=== PATIENT | female | born 1970 | race Caucasian/White ===

== ENCOUNTER 2016-08-16 09:40 | Emergency (ER) | payer SELFPAY ==
[2016-08-16 09:52] VITALS: BMI 36.6
[2016-08-16] MEDS ORDERED: ADACEL TDaP IM ONE ×2 (10:03→10:08)
[2016-08-16] MEDS ORDERED: ROCEPHIN VIAL 1 GM IM ONE (10:03)
[2016-08-16] MEDS ORDERED: TORADOL 60 MG VIAL IM ONE (10:04)
[2016-08-16] MEDS ORDERED: CATAPRES TAB 0.1 MG PO ONE (10:05)
[2016-08-16] MEDS ORDERED: CATAPRES TAB 0.2 MG ONE (10:08)
[2016-08-16] MEDS ORDERED: TORADOL 60 MG VIAL ONE (10:08)
[2016-08-16] MEDS ORDERED: ROCEPHIN VIAL 1 GM ONE (10:08)
--- NOTE | 2016-08-16 10:10 | DR.BITE ---
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 States her left lower leg has been hurting when she walks at times with drainage. She denies fever, chills, nausea or vomiting. States she does not have a local doctor. She has been having hot flashes and sweats a lot. Unsure of her last tetanus. States she reported the dog bite and is unsure of the dog immunizations. She denies chest pain or SOB. Chief Complaint:: PT. GOT BIT BY A DOG APPROXIMATELY 5 WEEKS AGO TO THE BACK OF HER LEFT CALF. AREA HAS NOT HEALED AND PT. STATES IT IS PAINFUL AND DRAINS. AREA IS ALSO HARD TO TOUCH. PT. HAS BEEN TAKING ORAL ANTIBIOTICS AND APPLYING ANTIBIOTIC OINTMENT TO AREA WITHOUT IMPROVEMENT. - Nurses notes reviewed Nurses Notes Review: Yes - Source History Provided: Patient - Mode of Arrival Mode of Arrival: Ambulatory - Duration Duration: Constant How lon Duration: Weeks - Location Location: Left, Leg - Timing Onset of Chief Complaint: 07/12/16 Symptoms Occurred: 5 ago: Weeks - Context Caused by: Dog Symptoms: Pain, Bruising, Redness, Swelling, Abrasion Immunization Status of Animal: Unknown Tetanus Immunization Current: No - Severity Pain: Moderate Puritis Severity: None SOB Severity: None - Associated signs and symptoms Associated signs and symptoms: Redness, Swelling, Pus PMH - PMH Past Medical History: Yes Past Medical History: Hypertension Past Surgical History: Yes Surgical History: Other Past Surgical History Comment: CYST REMOVED FROM RIGHT BREAST - Family History History of Family Medical Conditions: No - Social History Does patient currently use any type of tobacco product: Yes Have you used tobacco products in the last 12 months: Yes Type of Tobacco Use: Cigarettes Does any household member use tobacco: No Alcohol Use: None Do you use any recreational Drugs:: No Lives With: Friend Lives Where: Home - infectious screening In the last 2 months have you had wt loss of >10#?: NO Have you had fever, night sweats or hemotysis?: No Have you traveled outside the country in the last 6 months?: No Isolation: Standard ROS - Review of Systems Constitutional: No Symptoms Reported. negative: See HPI, Chills, Diaphoresis, Fever, Malaise, Weakness, Irritable, Fatigue, Loss of Appetite, Other Eyes: No Symptoms Reported ENTM: No Symptoms Reported. negative: See HPI, Ear Pain, Ear Discharge, Pulling on Ears, Hearing Loss, Nose Pain, Nose Discharge, Epistaxis, Nose Congestion, Mouth Pain, Mouth Swelling, Loose Teeth, Drooling, Throat Pain, Throat Swelling, Ear Foreign Body Respiratoy: No Symptoms Reported. negative: See HPI, Productive Cough, Non- Productive Cough, Moist Cough, Dry Cough, Hacking Cough, Barking Cough, Brassy Cough, Orthopnea, Short of Breath, Stridor, Wheezing, Hemoptysis, Other Cardiovascular: No Symptoms Reported. negative: See HPI, Chest Pain, Edema, Palpitations, Syncope, Cyanosis, Skin Mottling, Other Gastrointestinal/Abdominal: No Symptoms Reported. negative: See HPI, Abdominal Pain, Constipation, Diarrhea, Nausea, Vomiting, Food Intolerance, Other Genitourinary: No Symptoms Reported. negative: See HPI, Discharge, Dysuria, Frequency, Hematuria, Pain, Bleeding, Other Neurological: negative: No Symptoms Reported, See HPI, Anxiety, Depressed, Emotional Problems, Headache, Numbness, Paresthesia, Pre-existing Deficit, Seizure, Tingling, Tremors, Weakness, Dizziness, Problems Walking, Speech Problem, Other Musculoskeletal: No Symptoms Reported, Left, Leg (left leg with 3 cm lesion with crusting; slight purulent discharage) Integumentary: Lesions, Wound Hematologic/Lymphatic: No Symptoms Reported Endocrine: No Symptoms Reported. negative: See HPI, Excessive Sweating, Flushing, Intolerance to Cold, Intolerance to Heat, Increased Hunger, Increased Thirst, Increased Urine, Unexplained Weight Gain, Unexplained Weight Loss, Failure to Thrive, Decreased Appetite, Other Psychiatric: No Symptoms Reported. negative: See HPI, Anxiety, Depression, Hallucinations, Excessive crying, Suicidal, Other PE - Vital Signs Vital Signs: Temp Pulse Resp BP BP Pulse Ox 08/16/16 10:58 142/89 08/16/16 09:44 97.7 F 99 H 22 184/109 98 - Constitutional Limitations: No Limitations General Appearance: Alert, In Distress (moderate) - Head Head Exam: Normal Inspection, Atraumatic, Normocephalic - Eyes Eye exam: Normal Appearance, PERRL, EOMI. negative: Scleral Icterus, Conjunctival Injection, Nystagmus, Miosis, Mydrasis, Periorbital Swelling, Periorbital Tenderness, Other - ENT ENT Exam: Normal Exam, Normal Oropharynx, Normal External Ear Exam, Mucous Membranes Moist, TM's Normal Bilaterally - Neck Neck Exam: Normal Inspection, Full ROM, Trachea Midline. negative: Tenderness, Meningismus, Lymphadenopathy, Thyromegaly, Other - Chest Chest Inspection: Normal Inspection, Symmetric Chest Wall Rise. negative: Tenderness, Rash, Abscess, Other - Respiratory Respiratory Exam: Normal Lung Sounds Bilat Respiratory Exam: Bilateral Clear to Auscultation - Cardiovascular Cardiovascular Exam: Regular Rate, Normal Rhythm, Normal Heart Sounds. negative : Bradycardia, Tachycardia, Irregular Rhythm, Systolic Murmur, Diastolic Murmur , Rubs, Gallop, Clicks, JVD, +S1, +S2, +S3, +S4, Other - Abdominal Exam Abdominal Exam: Normal Inspection, Normal Bowel Sounds, Soft. negative: Distention, Tenderness, Guarding, Rebound, Rigidity, Dimnished Bowel Sounds, Hyperactive Bowel Sounds, Hypoactive Bowel Sounds, Organomegaly, Trauma, Incision, Ascites, Mass, Bruit, Pulsatile Mass, Hernia, Other Abdominal Tenderness: negative: RUQ, RLQ, LUQ, LLQ, Epigastrium, Suprapubic, Diffuse, Mild, Moderate, Severe, Other - Extremities Extremities Exam: Normal Inspection, Full ROM, Tenderness (left lower leg with 3 cm lesion with pink purulent discharge), Normal Capillary Refill. negative: Edema, Joint Swelling, Calf Tenderness, Other - Back Back Exam: Normal Inspection, Full ROM. negative: Tenderness, (R) CVA Tenderness, (L) CVA Tenderness, Muscle Spasm, Paraspinal Tenderness, Vertebral Tenderness, Rashes, (R) Sciatic Notch Tenderness, (L) Sciatic Notch Tendern, (R ) Straight Leg Raise, (L) Straight Leg Raise, Other - Neurologic Neurological Exam: Alert, Oriented X3, CN II-XII Intact, Reflexes Normal. negative: Normal Gait (gait not tested) Cranial Nerve Exam: EOM Function (II, III, IV, ): Normal, Facial Sensation (V) : Normal, Facial Palsy (VII): Normal, Gag reflex (XI): Normal, Spinal Accessory Function (XI): Normal, Tongue Deviation: Normal Upper Motor Neuron Exam: Babinski Sign: Normal - Psychiatric Psychiatric Exam: Normal Affect, Normal Mood. negative: Depressed, Agitated, Anxious, Flat Affect, Manic, Homicidal Ideation, Suicidal Ideation, Other - Skin Skin Exam: Warm, Dry, Intact, Normal Color, Erythema (left lower leg with crusting; purulent pink thick discharge) Type of Lesion: Bite/Sting (left lower leg) Distribution: negative: Generalized, Involves Palms/Soles, Head, Face, Neck, Thorax, Chest, Back, Abdomen, Genitals, LUE, LLE, RUE, RLE, Other Description: Tenderness, Erythematous (left lower leg with 3 cm lesion with thick covering) Involving: Immediate area of bite Through to: Bite Distal Function: Normal. negative: Motor deficit, Sensory deficit, Diminished pulse, Absent pulse, Sluggish capillary refill ROR - Labs Reviewed Laboratory Results Reviewed?: Yes (all x-ray results reviewed and discussed with patient) - XRAY XRAY Interpreted by: Self (left leg: no foreign body noted; subcutaneous density noted) - Diagnosis Discharge Problem: Cellulitis of left leg, Essential hypertension Dog bite of left lower leg Qualifiers: Encounter type: initial encounter Qualified Code(s): S81.852A - Open bite, left lower leg, initial encounter; W54.0XXA - Bitten by dog, initial encounter - Discharge Plan Disposition: HOME, SELF-CARE Condition: Stable Prescriptions: Acetaminophen/Codeine Tab [TYLENOL w/CODEINE #3 (300 MG/30 MG) *] 1 tab PO Q4- 6H PRN #30 tab PRN Reason: Pain Bisoprol/Hydrochlorothiazide [Ziac 5 mg/6.25 mg] 1 tab PO DAILY #30 tab Cephalexin [KEFLEX CAP 500 MG *] 500 mg PO TID #30 cap Sulfamethoxazole-Trimethoprim [BACTRIM DS TAB 800/160 MG *] 1 tab PO BID #20 tab - Follow ups/Referrals Follow ups/Referrals: CASTILLO,None [Primary Care Provider] - 3 days TETO OSBORNE [STAFF PHYSICIAN] - 3 days - Instructions Instructions: Cellulitis, MRSA Infection, Adult, Animal Bite, Hypertension, [id number]
[2016-08-16 10:58] VITALS: BP 142/89
[2016-08-16] MEDS ORDERED: BACITRACIN ZINC ONE (12:07)
[2016-08-16] MEDS ORDERED: BACTROBAN OINT TOP ONE (12:11)
--- NOTE | 2016-08-16 17:31 | RAD ---
Left lower leg, AP and lateral Indication: Dog bite 5 weeks ago, presents with pain and draining wound. Comparison: None Findings: There is some nonspecific subcutaneous stranding of the posterior mid calf. No radiopaque foreign body identified. The tibia and fibula appear unremarkable. Impression: Mild nonspecific stranding of the posterior calf. No significant skeletal abnormality. Reported By:
== END 2016-08-16 12:14 | disposition home or self-care (01) ==
LOC: ER 09:44
DX: S81.852A Open bite, left lower leg, initial encounter (principal); L03.116 Cellulitis of left lower limb; I10 Essential (primary) hypertension; W54.0XXA Bitten by dog, initial encounter
CPT/HCPCS: 73590; 87070; 87075; 90471; 96372; 99282; 99283; J0696; J1885

== ENCOUNTER 2016-09-16 06:34 | Inpatient (IN) | payer SELFPAY ==
[2016-09-16 06:38] VITALS: BMI 35.5
--- NOTE | 2016-09-16 06:58 | DR.GENAD ---
HPI - PCP Primary Care Physician: NFD - HPI Comment HPI Comment: PATIENT HAVE INFECTED DOG BITE WOUND THAT IS INFECTED. PATIENT TOOK BACTRIM AND KEFLEX BUT WOUND IS GETTING WORSE. - Complaint/Symptoms Chief Complaint Doctors Comments: DOG BITE 07/13/2016 THAT IS INFECTED AND HAVE FAIL OUT PATIENT TRATMENT. Chief Complaint:: PT C/O DOG BITE TO LT LEG THAT IS NOT HEALING. IT HAS BEEN 10 WKS SINCE THE BITE AND PT HAS BEEN ON ANTIBIOTICS. NOTED BITE TO HAVE NECROTIC TISSUE - Nurses notes reviewed Nurses Notes Review: Yes - Source History Provided: Patient - Mode of Arrival Mode of Arrival: Ambulatory - Timing Onset of Chief Complaint: 07/13/16 Came on: Gradually - Duration Duration: Constant Duration: Weeks - Severity Severity: Moderate PMH - PMH Past Medical History: Yes Past Medical History: Hypertension Past Surgical History: Yes Surgical History: Other - Family History History of Family Medical Conditions: No - Social History Does patient currently use any type of tobacco product: Yes Have you used tobacco products in the last 12 months: Yes Type of Tobacco Use: Cigarettes Does any household member use tobacco: Yes Alcohol Use: None Do you use any recreational Drugs:: No Lives With: Family Lives Where: Home - infectious screening In the last 2 months have you had wt loss of >10#?: NO Have you had fever, night sweats or hemotysis?: No Have you traveled outside the country in the last 6 months?: No Isolation: Standard ROS - Review of Systems Constitutional: No Symptoms Reported Eyes: No Symptoms Reported ENTM: No Symptoms Reported Respiratoy: No Symptoms Reported Cardiovascular: No Symptoms Reported Gastrointestinal/Abdominal: No Symptoms Reported Genitourinary: No Symptoms Reported Neurological: No Symptoms Reported Musculoskeletal: Left, Leg Integumentary: Change in Color, Other (INFECTED NECROTIZING WOUND LEFT LEG.) Hematologic/Lymphatic: No Symptoms Reported Endocrine: No Symptoms Reported All Other Systems: Reviewed and Negative PE - Vital Signs Vitals: Temperature 98.5 F Pulse Rate 86 Respiratory Rate 20 Blood Pressure [Left Arm] 142/89 Blood Pressure 181/102 O2 Sat by Pulse Oximetry 96 - General Limitations: No Limitations General Appearance: Alert - Head Head Exam: Normal Inspection - Eyes Eye exam: Normal Appearance - ENT ENT Exam: Normal External Ear Exam External Ear Exam: Normal External Inspection TM/Canal Exam: Bilateral Normal Nose Exam: Normal Nose Exam Mouth Exam: Normal Inspection Throat Exam: Normal Inspection - Neck Neck Exam: Trachea Midline - Chest Chest Inspection: Symmetric Chest Wall Rise - Respiratory Respiratory Exam: Normal Lung Sounds Bilat Respiratory Exam: Bilateral Clear to Auscultation - Cardiovascular Cardiovascular Exam: Regular Rate, Normal Rhythm, Normal Heart Sounds - Abdominal Exam Abdominal Exam: Normal Bowel Sounds, Soft. negative: Tenderness - Extremities Extremities Exam: Tenderness (LEFT LEG WITH NECROTIZING WOUND LEFT LEG.) - Back Back Exam: Normal Inspection - Neurologic Neurological Exam: Alert, Oriented X3, CN II-XII Intact - Psychiatric Psychiatric Exam: Normal Affect, Normal Mood - Skin Skin Exam: Erythema MDM - Differential Diagnosis Differential Diagnosis: CELLULITIS, NECROTIZING FACIATIS, OSTEOMYELITIS Course - Treatment Treatment: SEE ORDERS - Consultation Consultation Comments: DISCUSS PATIENT WITH DR. WILDE. HE WILL ADMIT PATIENT. - Education/Counseling Education/Counseling: Patient, Education Educated On: Treatment, Diagnosis ROR - Labs Reviewed Laboratory Results Reviewed?: Yes Result Diagrams: 09/18/16 04:02 09/18/16 04:02 Laboratory: WBC 6.5 X10^3/uL (3.6-10.0) 09/16/16 07:15 RBC 4.86 X10^6/uL (3.5-5.4) 09/16/16 07:15 Hgb 14.9 g/dL (12.0-16.0) 09/16/16 07:15 Hct 42.6 % (36.0-47.0) 09/16/16 07:15 MCV 87.7 fL (80.0-100.0) 09/16/16 07:15 MCH 30.7 pg (27.0-34.0) 09/16/16 07:15 MCHC 35.0 g/dL (33.0-35.0) 09/16/16 07:15 RDW 13.5 % (11.6-16.5) 09/16/16 07:15 Plt Count 240 X10^3/uL (150.0-450.0) 09/16/16 07:15 MPV 7.3 fL (7.4-11.0) L 09/16/16 07:15 Neut % 59.9 % (42.0-75.0) 09/16/16 07:15 Lymph % 29.7 % (21.0-51.0) 09/16/16 07:15 [place] % 7.4 % (0.0-13.0) 09/16/16 07:15 Eos % 2.3 % (0.9-2.9) 09/16/16 07:15 Baso % 0.7 % (0.2-1.0) 09/16/16 07:15 Neut # 3.9 x10^3/uL (2.2-4.8) 09/16/16 07:15 Lymph # 1.9 X10^3/uL (1.3-2.9) 09/16/16 07:15 [place] # 0.5 x10^3/uL (0.3-0.8) 09/16/16 07:15 Eos # 0.1 x10^3/uL (0.0-0.2) 09/16/16 07:15 Baso # 0.0 X10^3/uL (0.0-0.1) 09/16/16 07:15 Absolute Nucleated RBC 0.0 /100WBC 09/16/16 07:15 - XRAY XRAY Interpreted by: Radiologist XRAY Findings: REPORT DISCUSS WITH PATIENT. - Diagnosis Discharge Problem: Cellulitis, Infected dog bite - Discharge Plan Disposition: ADMITTED INPATIENT Condition: Stable - Follow ups/Referrals - Instructions
[2016-09-16 07:47] LABS: BASOPHILS % (AUTO) 0.7 % (0.2-1.0); EOSINOPHILS # (AUTO) 0.1 x10^3/uL (0.0-0.2); EOSINOPHILS % (AUTO) 2.3 % (0.9-2.9); HEMATOCRIT 42.6 % (36.0-47.0); HEMOGLOBIN 14.9 g/dL (12.0-16.0); LYMPHOCYTES # (AUTO) 1.9 X10^3/uL (1.3-2.9); LYMPHOCYTES % (AUTO) 29.7 % (21.0-51.0); MEAN CORPUSCULAR HEMOGLOBIN 30.7 pg (27.0-34.0); MEAN CORPUSCULAR VOLUME 87.7 fL (80.0-100.0); MEAN PLATELET VOLUME 7.3 fL (7.4-11.0); MONOCYTES # (AUTO) 0.5 x10^3/uL (0.3-0.8); MONOCYTES % (AUTO) 7.4 % (0.0-13.0); NEUTROPHILS # (AUTO) 3.9 x10^3/uL (2.2-4.8); NEUTROPHILS % (AUTO) 59.9 % (42.0-75.0); PLATELET COUNT 240 X10^3/uL (150.0-450.0); RED BLOOD COUNT 4.86 X10^6/uL (3.5-5.4); RED CELL DISTRIBUTION WIDTH 13.5 % (11.6-16.5); WHITE BLOOD COUNT 6.5 X10^3/uL (3.6-10.0)
[2016-09-16] MEDS ORDERED: PHENERGAN TAB 25 MG PO PRN (07:48)
[2016-09-16 07:57] LABS: ALANINE AMINOTRANSFERASE 26 Units/L (12-78); ALBUMIN 3.9 g/dL (3.4-5.0); ALKALINE PHOSPHATASE 53 Units/L (46-116); ASPARTATE AMINO TRANSFERASE 17 Units/L (15-37); BLOOD UREA NITROGEN 14 mg/dL (7-18); CALCIUM 8.2 mg/dL (8.5-10.1); CARBON DIOXIDE 26.8 mmol/L (21-32); CHLORIDE 106 mmol/L (98-107); CREATININE 1.06 mg/dL (0.55-1.02); GLUCOSE 96 mg/dL (65-99); SODIUM 142 mmol/L (136-145); TOTAL PROTEIN 6.9 g/dL (6.4-8.2); eGFR BLACK RACES > 60 (>60); eGFR NON BLACK RACES 59 (>60)
[2016-09-16] MEDS ORDERED: PHARMACY CONSULT - VANCOMYCIN XX SCH (08:00)
[2016-09-16] MEDS ORDERED: VANCOMYCIN 1 GM PREMIX (ADDVANTAGE) 250 ML IV ONE (09:03)
[2016-09-16] MEDS ORDERED: NS 1000 ML 1,000 ML ONE (09:03)
[2016-09-16] MEDS: VANCOMYCIN 1 GM PREMIX (ADDVANTAGE) 250 ML IV SCH ×3 (09:17→20:53)
[2016-09-16] MEDS: NS 1000 ML 1,000 ML IV SCH ×2 (09:17→17:16)
--- NOTE | 2016-09-16 10:00 | RAD ---
HISTORY: Infected wound. Study: Two views of the left tibia/fibula. Comparison: Left tibial series dated August 16, 2016. Findings: No acute cortical disruption or dislocation can be identified. Small soft tissue defect is seen pos terior to the distal left calf. No associated periosteal reaction. No radiopaque foreign body. IMPRESSION: Soft tissue defect as above. No acute osseous abnormality. Reported By:
[2016-09-16] MEDS ORDERED: VISTARIL PO PRN ×2 (10:41→10:43)
[2016-09-16] MEDS ORDERED: NS 500 ML IV 500 ML IV ONE (10:44)
[2016-09-16] MEDS: ZOSYN VIAL 3.375 GM 3.375 GM in NS 100 ML IV + SPIKE MINIBAG* 100 ML IV SCH ×3 (10:53→23:26)
[2016-09-16] MEDS: TORADOL 30 MG VIAL IVP PRN (11:00)
[2016-09-16] MEDS: NS 500 ML IV 500 ML IV SCH (11:10)
--- NOTE | 2016-09-16 11:15 | DR.H&P ---
H&P - History & Physical for Day of: H&P Date: 09/16/16 - Chief Complaint Chief Complaint: INFECTED DOG BITE TO LEFT LEG - Allergies Allergies/Adverse Reactions: Allergies Allergy/AdvReac Type Severity Reaction Status Date / Time No Known Drug Allergies Allergy Verified 08/16/16 09:52 - History of Present Illness History of Present Illness: IS A 46 YEAR OLD PATIENT OF OURS WHO PRESENTED TO THE EMERGENCY ROOM WITH COMPLAINTS AN INFECTED DOG BITE WOUND. PATIENT STATES THAT SHE WAS BIT BY A DOG ON 07/13/16. SHE HAS BEEN TREATED WITH KEFLEX AND BACTRIM, HOWEVER, WOUND HAS ONLY GOTTEN WORSE. ON EXAMINATION, LEFT LOWER LEG NOTED WITH REDNESS, TENDERNESS, AND SWELLING. WOUND NOTED WITH NECROTIC TISSUE. ON ARRIVAL TO ER, VITALS WERE 98.5-86-20-96%-181/102. CBC WNL. CMP WNL EXCEPT POTASSIUM 3.3, CRATININIE 1.06, CALCIUM 8.2, TOTAL BILIRUBIN 2.00. XRAY OF THE LEFT LOWER LEG REPORTS SMALL SOFT TISSUE DEFECT POSTERIOR TO THE DISTAL LEFT CALF. WE ADMITTED PATIENT FOR FURTHER TREATMENT AND EVALUATION. WE STARTED HER ON VANCOMYCIN 1GM IV Q12H, ZOSYN 3.375 GM IV TID, WE WILL ORDER A SURGICAL CONSULT, RECHECK LABS AND FOLLOW UP WITH PATIENT IN AM. - Past Medical History Past Medical History: Hypertension - Past Surgical History Surgical History: No History - Family History Family Medical History: denies: Diabetes Mellitus, Cancer, [place], Coronary Artery Disease, Heart Failure, Sudden Cardiac , Hypertension - Social History Does patient currently use any type of tobacco product: Yes Have you used tobacco products in the last 12 months: Yes Type of Tobacco Use: Cigarettes How many years tobacco product used: 10 Packs per day or dips/chews per day: 1/2 Does any household member use tobacco: Yes Alcohol Use: None Drug Use: None - Medications Home Medications: Mupirocin Oint [BACTROBAN OINT 2%] 1 applic TOP TID 09/16/16 [History Confirmed 09/16/16] - Review of Systems Constitutional: No Symptoms Reported. denies: See HPI, Fever, Chills, Sweats, Weakness, Malaise, Other Eyes: No Symptoms Reported. denies: See HPI, Pain, Vision Change, Conjunctivae Inflammation, Eyelid Inflammation, Redness, Other ENT: No Symptoms Reported. denies: See HPI, Ear Pain, Ear Discharge, Nose Pain , Nose Discharge, Nose Congestion, Mouth Pain, Mouth Swelling, Throat Pain, Throat Swelling, Other Respiratory: No Symptoms Reported. denies: See HPI, Cough, Dry, Shortness of Breath, Hemoptysis, SOB with Excertion, Pleuritic Pain, Sputum, Wheezing, Other Cardiovascular: No Symptoms Reported. denies: Chest Pain, See HPI, Palpitations , Orthopnea, Paroxysmal Noc. Dyspnea, Edema, Light Headedness, Other Gastrointestinal: No Symptoms Reported. denies: See HPI, Nausea, Vomiting, Abdominal Pain, Diarrhea, Constipation, Melena, Hematochezia, Other Genitourinary: No Symptoms Reported. denies: See HPI, Dysuria, Frequency, Incontinence, Hematuria, Retention, Other Musculoskeletal: See HPI, Leg Pain (LEFT LEG ) Skin: See HPI, Wound. denies: No Symptoms Reported, Rash, Lesions, Jaundice, Bruising, Ecchymosis, Other Neurological: No Symptoms Reported. denies: See HPI, Weakness, Numbness, Incoordination, Change in Speech, Confusion, Seizures, Other - Physical Exam Vital Signs: Temperature 97.6 F Pulse Rate [Right Brachial] 76 Respiratory Rate 20 Blood Pressure [Right Arm] 163/92 Blood Pressure [Left Arm] 144/76 O2 Sat by Pulse Oximetry 95 Oriented: Normal. negative: Time, Person, Place, Not Oriented, Unable to test, Other Eyes: Normal Ear: Normal. negative: Right, Left, Swelling, Ecchymosis, Hemotypanum, Abrasion , Laceration Nose: Normal. negative: Injected, Discharge, Blood, Other Throat: Normal. negative: Tonsillar Hypertrophy, Red, Exudate, Dry, Other Respiratory: Clear Throughout. negative: Diminished Throughout, Rhonchi Throughout, Rales Throughout, Wheezes Throughout, RUL Clear, RML Clear, RLL Clear, KATHY Clear, LML Clear, LLL Clear, RUL Diminished, RML Diminished, RLL Diminished, KATHY Diminished, LML Diminished, LLL Diminished, RUL Absent, RML Absent, RLL Absent, KATHY Absent, LML Absent, LLL Absent, RUL Rhonchi, RML Rhonchi , RLL Rhonchi, KATHY Rhonchi, LML Rhonchi, LLL Rhonchi, RUL Insp. Wheeze, RML Insp. Wheeze, RLL Insp. Wheeze, KATHY Insp.Wheeze, LML Insp.Wheeze, LLL Insp.Wheeze, RUL Exp. Wheeze, RML Exp. Wheeze, RLL Exp. Wheeze, KATHY Exp. Wheeze , LML Exp. Wheeze, LLL Exp. Wheeze, RUL Rales, RML Rales, RLL Rales, KATHY Rales, LML Rales, LLL Rales, RUL Rub, RML Rub, RLL Rub, KATHY Rub, LML Rub, LLL Rub, RUL Squeak, RML Squeak, RLL Squeak, KATHY Squeak, LML Squeak, LLL Squeak Cardiovascular: Normal. negative: Tachycardia, Bradycardia, Irregular, S3, S4, Systolic, Diastolic, Murmur, Edema, Other : Normal. negative: Dysuria, Hematuria, Frequency, Discharge, Testicular Pain , Bleeding, , Other Auscultation: Bowel Sounds: Normal. negative: Bruit, Absent, Increased, Decreased, High Pitched, Other Palpation: Normal. negative: Spleen Enlarged, Liver Enlarged, Mass Pulsatile, Other Tenderness: Normal. negative: Diffuse, RUQ, RLQ, LUQ, LLQ, Epigastric, Periumbilical, Suprapubic, Mild, Moderate, Severe, Rebound, Guarding, Rigidity, Other Skin: Red, Tender, Wound, Other (NECROTIC TISSUE TO WOUND ) Musculoskeletal: Normal, Leg, Swelling, Tender Psychiatric: Normal. negative: Anxiety, Depression, Agitation, Other Mood Description: Calm. negative: Angry, Apathetic, Depressed, Fearful, Flat, Happy, Hostile, Sad, Suspicious, Withdrawn, Anxious, Appropriate, Labile Affect: Normal. negative: Angry, Anxious, Depressed, Flat, Hysterical, Quiet, Violent Speech Pattern: Clear. negative: Appropriate, Unclear, Inappropriate, Delayed, Slurred, Excessive, Aphasic, Artificially Ventilated - Assessment/Plan (1) Cellulitis of left leg Status: Acute Plan: START VANCOMYCIN 1GM IV Q12H, START ZOSYN 3.375 GM IV TID, SURGICAL CONSULT, CONTINUE TO MONITOR (2) Dog bite of left lower leg Qualifiers: Encounter type: initial encounter Qualified Code(s): S81.852A - Open bite, left lower leg, initial encounter; W54.0XXA - Bitten by dog, initial encounter Status: Acute Plan: START VANCOMYCIN 1GM IV Q12H, START ZOSYN 3.375 GM IV TID, TORADOL 30MG IV Q8H PRN FOR PAIN AND INFLAMMATION, SURGICAL CONSULT, CONTINUE TO MONITOR (3) Hypertension Qualifiers: Hypertension type: essential hypertension Qualified Code(s): I10 - Essential (primary) hypertension Status: Acute Plan: CONTINUE ZIAC, CONTINUE TO MONITOR
[2016-09-16] MEDS ORDERED: TYLENOL #3 TAB (W/CODEINE) PO PRN (11:45)
[2016-09-16] MEDS: ZIAC 5/6.25 MG PO SCH (13:18)
[2016-09-16] MEDS ORDERED: POTASSIUM CHLORIDE LIQ 20 MEQ UDC PO PRN (14:58)
[2016-09-16] MEDS ORDERED: K-LYTE EFFERVESCENT PO PRN (14:58)
[2016-09-16] MEDS ORDERED: K-DUR TAB 20 MEQ PO PRN (14:58)
[2016-09-16] MEDS ORDERED: K-RIDER 10 MEQ/NS 100 ML 10 MEQ/100 ML BAG IV PRN (14:58)
[2016-09-17] MEDS: NS 1000 ML 1,000 ML IV SCH ×2 (05:24→21:45)
[2016-09-17] MEDS: ZOSYN VIAL 3.375 GM 3.375 GM in NS 100 ML IV + SPIKE MINIBAG* 100 ML IV SCH ×3 (05:24→21:45)
[2016-09-17 05:38] LABS: ALANINE AMINOTRANSFERASE 86 Units/L (12-78); ALBUMIN 3.6 g/dL (3.4-5.0); ALKALINE PHOSPHATASE 52 Units/L (46-116); ASPARTATE AMINO TRANSFERASE 62 Units/L (15-37); BLOOD UREA NITROGEN 13 mg/dL (7-18); CALCIUM 7.8 mg/dL (8.5-10.1); CARBON DIOXIDE 25.7 mmol/L (21-32); CHLORIDE 109 mmol/L (98-107); CREATININE 1.11 mg/dL (0.55-1.02); GLUCOSE 97 mg/dL (65-99); SODIUM 143 mmol/L (136-145); TOTAL PROTEIN 6.5 g/dL (6.4-8.2); eGFR BLACK RACES > 60 (>60); eGFR NON BLACK RACES 56 (>60)
[2016-09-17 06:26] LABS: BASOPHILS % (AUTO) 0.5 % (0.2-1.0); EOSINOPHILS # (AUTO) 0.1 x10^3/uL (0.0-0.2); EOSINOPHILS % (AUTO) 2.8 % (0.9-2.9); LYMPHOCYTES # (AUTO) 1.9 X10^3/uL (1.3-2.9); LYMPHOCYTES % (AUTO) 36.4 % (21.0-51.0); MEAN CORPUSCULAR HEMOGLOBIN 30.5 pg (27.0-34.0); MONOCYTES # (AUTO) 0.4 x10^3/uL (0.3-0.8); MONOCYTES % (AUTO) 6.9 % (0.0-13.0); NEUTROPHILS # (AUTO) 2.8 x10^3/uL (2.2-4.8); NEUTROPHILS % (AUTO) 53.4 % (42.0-75.0)
[2016-09-17 07:16] LABS: HEMATOCRIT 39.9 % (36.0-47.0); HEMOGLOBIN 13.8 g/dL (12.0-16.0); MEAN CORPUSCULAR HGB CONC 34.6 g/dL (33.0-35.0); MEAN CORPUSCULAR VOLUME 88.2 fL (80.0-100.0); MEAN PLATELET VOLUME 7.7 fL (7.4-11.0); PLATELET COUNT 211 X10^3/uL (150.0-450.0); RED BLOOD COUNT 4.52 X10^6/uL (3.5-5.4); RED CELL DISTRIBUTION WIDTH 13.4 % (11.6-16.5); WHITE BLOOD COUNT 5.4 X10^3/uL (3.6-10.0)
[2016-09-17] MEDS: VANCOMYCIN 1 GM PREMIX (ADDVANTAGE) 250 ML IV SCH ×2 (08:27→21:45)
[2016-09-17] MEDS: ZIAC 5/6.25 MG PO SCH (09:30)
--- NOTE | 2016-09-17 10:53 | PCM.PROG ---
Progress Note - Progress Note for Day of Date: 09/17/16 - Subjective Subjective: IS ALERT AND ORIENTED, IN BED, ON MORNING ROUNDS. SHE IS NOTED WITH COMPLAINTS OF PAIN TO LEFT LOWER LEG. ON EXAMINATION, WOUND TO LEFT LOWER LEG NOTED WITH PURULENT DRAINAGE. NECROTIC TISSUE NOTED TO WOUND. VITALS THIS AM ARE 97.7-68-20-95%-141/83. CBC WNL. CMP WNL EXCEPT CHLORIDE 109, CREATININE 1.11, GFR 56, CALCIUM 7.8, TOTAL BILIRUBIN 1.90, AST 62, ALT 86. WOUND CULTURE REPORTS GRAM NEGATIVE RODS AT DAY 1. WE ARE AWAITING SURGICAL CONSULT. WE WILL CONTINUE WITH CURRENT PLAN OF CARE AND FOLLOW UP WITH PATIENT IN AM. - Past Medical Family Social History Past Med/Fam/Surg Hx: No changes since H&P Allergies: Allergies No Known Drug Allergies Allergy (Verified 08/16/16 09:52) - Review of Systems ROS: No change since H&P - Vital Signs and I&O's Vital Signs: Temperature 97.7 F Pulse Rate [Right Brachial] 68 Respiratory Rate 20 Blood Pressure [Right Arm] 171/74 Blood Pressure [Left Arm] 144/76 O2 Sat by Pulse Oximetry 95 Intake and Output: Intake & Output 09/14/16 09/15/16 09/16/16 09/17/16 11:59 11:59 11:59 11:59 Intake Total 3930 Balance 3930 - Physical Exam Oriented: Normal. negative: Time, Person, Place, Not Oriented, Unable to test, Other Eyes: Normal Ear: Normal. negative: Right, Left, Swelling, Ecchymosis, Hemotypanum, Abrasion , Laceration Nose: Normal. negative: Injected, Discharge, Blood, Other Throat: Normal. negative: Tonsillar Hypertrophy, Red, Exudate, Dry, Other Respiratory: Normal Cardiovascular: Normal. negative: Tachycardia, Bradycardia, Irregular, S3, S4, Systolic, Diastolic, Murmur, Edema, Other : Normal. negative: Dysuria, Hematuria, Frequency, Discharge, Testicular Pain , Bleeding, , Other Auscultation: Bowel Sounds: Normal. negative: Bruit, Absent, Increased, Decreased, High Pitched, Other Palpation: Normal Tenderness: Normal. negative: Diffuse, RUQ, RLQ, LUQ, LLQ, Epigastric, Periumbilical, Suprapubic, Mild, Moderate, Severe, Rebound, Guarding, Rigidity, Other Skin: Red, Tender, Wound, Other (NECROTIC TISSUE TO WOUND ) Musculoskeletal: Normal, Leg, Swelling, Tender Psychiatric: Normal. negative: Anxiety, Depression, Agitation, Other Mood Description: Calm. negative: Angry, Apathetic, Depressed, Fearful, Flat, Happy, Hostile, Sad, Suspicious, Withdrawn, Anxious, Appropriate, Labile Affect: Normal. negative: Angry, Anxious, Depressed, Flat, Hysterical, Quiet, Violent Speech Pattern: Clear, Appropriate - Laboratory and Diagnostics Result Diagrams: 09/17/16 06:40 09/17/16 04:22 Labs: 09/17/16 08:50 Drainage Gram Stain - Final Laboratory WBC 5.4 X10^3/uL (3.6-10.0) 09/17/16 06:40 RBC 4.52 X10^6/uL (3.5-5.4) 09/17/16 06:40 Hgb 13.8 g/dL (12.0-16.0) 09/17/16 06:40 Hct 39.9 % (36.0-47.0) 09/17/16 06:40 MCV 88.2 fL (80.0-100.0) 09/17/16 06:40 MCH 30.5 pg (27.0-34.0) 09/17/16 06:40 MCHC 34.6 g/dL (33.0-35.0) 09/17/16 06:40 RDW 13.4 % (11.6-16.5) 09/17/16 06:40 Plt Count 211 X10^3/uL (150.0-450.0) 09/17/16 06:40 MPV 7.7 fL (7.4-11.0) 09/17/16 06:40 Neut % 53.4 % (42.0-75.0) 09/17/16 06:40 Lymph % 36.4 % (21.0-51.0) 09/17/16 06:40 Refugio % 6.9 % (0.0-13.0) 09/17/16 06:40 Eos % 2.8 % (0.9-2.9) 09/17/16 06:40 Baso % 0.5 % (0.2-1.0) 09/17/16 06:40 Neut # 2.8 x10^3/uL (2.2-4.8) 09/17/16 06:40 Lymph # 1.9 X10^3/uL (1.3-2.9) 09/17/16 06:40 Refugio # 0.4 x10^3/uL (0.3-0.8) 09/17/16 06:40 Eos # 0.1 x10^3/uL (0.0-0.2) 09/17/16 06:40 Baso # 0.0 X10^3/uL (0.0-0.1) 09/17/16 06:40 Absolute Nucleated RBC 0.1 /100WBC 09/17/16 06:40 Sodium 143 mmol/L (136-145) 09/17/16 04:22 Corrected Sodium TNP 09/17/16 04:22 Potassium 4.0 mmol/L (3.5-5.1) 09/17/16 04:22 Chloride 109 mmol/L (98-107) H 09/17/16 04:22 Carbon Dioxide 25.7 mmol/L (21-32) 09/17/16 04:22 BUN 13 mg/dL (7-18) 09/17/16 04:22 Creatinine 1.11 mg/dL (0.55-1.02) H 09/17/16 04:22 Est GFR (MDRD) Af Amer > 60 (>60) 09/17/16 04:22 Est GFR (MDRD) Non-Af 56 (>60) L 09/17/16 04:22 Glucose 97 mg/dL (65-99) 09/17/16 04:22 Calcium 7.8 mg/dL (8.5-10.1) L 09/17/16 04:22 Corrected Calcium TNP 09/17/16 04:22 Total Bilirubin 1.90 mg/dL (0.2-1.0) H 09/17/16 04:22 AST 62 Units/L (15-37) H 09/17/16 04:22 ALT 86 Units/L (12-78) H 09/17/16 04:22 Alkaline Phosphatase 52 Units/L (46-116) 09/17/16 04:22 C-Reactive Protein 0.50 mg/L (0-3.0) 09/16/16 07:15 Total Protein 6.5 g/dL (6.4-8.2) 09/17/16 04:22 Albumin 3.6 g/dL (3.4-5.0) 09/17/16 04:22 Globulin 2.9 g/dL (2.5-4.5) 09/17/16 04:22 Albumin/Globulin Ratio 1.2 Ratio (1.1-2.1) 09/17/16 04:22 - Plan (1) Cellulitis of left leg Status: Acute Plan: CONTINUE VANCOMYCIN 1GM IV Q12H, CONTINUE ZOSYN 3.375 GM IV TID, SURGICAL CONSULT, CONTINUE TO MONITOR (2) Dog bite of left lower leg Status: Acute Qualifiers: Encounter type: initial encounter Qualified Code(s): S81.852A - Open bite, left lower leg, initial encounter; W54.0XXA - Bitten by dog, initial encounter Plan: CONTINUE VANCOMYCIN 1GM IV Q12H, CONTINUE ZOSYN 3.375 GM IV TID, TORADOL 30MG IV Q8H PRN FOR PAIN AND INFLAMMATION, SURGICAL CONSULT, CONTINUE TO MONITOR (3) Hypertension Status: Acute Qualifiers: Hypertension type: essential hypertension Qualified Code(s): I10 - Essential (primary) hypertension Plan: CONTINUE ZIAC, CONTINUE TO MONITOR
[2016-09-17] MEDS: TORADOL 30 MG VIAL IVP PRN (12:57)
[2016-09-17] MEDS ORDERED: DIPRIVAN VIAL ONE (13:55)
[2016-09-17] MEDS ORDERED: VERSED ONE (13:55)
[2016-09-17] MEDS ORDERED: XYLOCAINE 1 % (PLAIN) ONE (16:01)
[2016-09-17] MEDS ORDERED: MARCAINE 0.25% WITH EPI IJ ONE (16:01)
[2016-09-17] MEDS ORDERED: LR 1000 ML IV 1,000 ML IV ONE (16:34)
[2016-09-17 16:43] LABS: SERUM PREGNANCY TEST, QUAL NEGATIVE <10 mIU/mL
[2016-09-17] MEDS ORDERED: FENTANYL INJ 100 mcg ONE (17:14)
[2016-09-17] MEDS ORDERED: NS IRRIGATION 1000 ML 1,000 ML IR ONE ×2 (17:46)
[2016-09-17] MEDS ORDERED: MORPHINE SULFATE INJ 2 MG IVP PRN (18:05)
[2016-09-17] MEDS ORDERED: ZOFRAN INJ 4 MG VIAL IVP PRN (18:05)
[2016-09-17] MEDS ORDERED: NORCO 5/325 MG TAB PO PRN (18:05)
[2016-09-18 05:21] LABS: BASOPHILS % (AUTO) 0.6 % (0.2-1.0); EOSINOPHILS # (AUTO) 0.2 x10^3/uL (0.0-0.2); EOSINOPHILS % (AUTO) 2.8 % (0.9-2.9); HEMOGLOBIN 13.7 g/dL (12.0-16.0); LYMPHOCYTES # (AUTO) 1.8 X10^3/uL (1.3-2.9); LYMPHOCYTES % (AUTO) 29.3 % (21.0-51.0); MEAN CORPUSCULAR HEMOGLOBIN 30.3 pg (27.0-34.0); MEAN CORPUSCULAR HGB CONC 34.2 g/dL (33.0-35.0); MEAN CORPUSCULAR VOLUME 88.4 fL (80.0-100.0); MEAN PLATELET VOLUME 7.8 fL (7.4-11.0); MONOCYTES # (AUTO) 0.4 x10^3/uL (0.3-0.8); MONOCYTES % (AUTO) 5.8 % (0.0-13.0); NEUTROPHILS # (AUTO) 3.7 x10^3/uL (2.2-4.8); NEUTROPHILS % (AUTO) 61.5 % (42.0-75.0); PLATELET COUNT 212 X10^3/uL (150.0-450.0); RED BLOOD COUNT 4.53 X10^6/uL (3.5-5.4); RED CELL DISTRIBUTION WIDTH 13.2 % (11.6-16.5)
[2016-09-18] MEDS: ZOSYN VIAL 3.375 GM 3.375 GM in NS 100 ML IV + SPIKE MINIBAG* 100 ML IV SCH (06:09)
[2016-09-18] MEDS: NS 1000 ML 1,000 ML IV SCH (07:01)
[2016-09-18 07:41] LABS: ALANINE AMINOTRANSFERASE 232 Units/L (12-78); ALBUMIN 3.5 g/dL (3.4-5.0); ALKALINE PHOSPHATASE 51 Units/L (46-116); ASPARTATE AMINO TRANSFERASE 128 Units/L (15-37); BLOOD UREA NITROGEN 10 mg/dL (7-18); CALCIUM 7.8 mg/dL (8.5-10.1); CARBON DIOXIDE 24.2 mmol/L (21-32); CHLORIDE 107 mmol/L (98-107); COR NA(FOR HYPERGLY) 142 mmol/L (136-145); CREATININE 1.04 mg/dL (0.55-1.02); GLUCOSE 113 mg/dL (65-99); SODIUM 142 mmol/L (136-145); TOTAL PROTEIN 6.3 g/dL (6.4-8.2); eGFR BLACK RACES > 60 (>60); eGFR NON BLACK RACES > 60 (>60)
[2016-09-18] MEDS: VANCOMYCIN 1 GM PREMIX (ADDVANTAGE) 250 ML IV SCH (08:17)
[2016-09-18] MEDS: TORADOL 30 MG VIAL IVP PRN (08:17)
[2016-09-18] MEDS: ZIAC 5/6.25 MG PO SCH (08:19)
[2016-09-18 11:56] VITALS: BP 161/65
[2016-09-18] MEDS: NS 500 ML IV 500 ML IV SCH (12:03)
--- NOTE | 2016-09-18 17:56 | DR.CARTERD ---
- Admission Date Date of Admission: 09/16/16 - Admission Diagnoses Admission Diagnosis: (1) Cellulitis of left leg (2) Dog bite of left lower leg (3) Hypertension - Discharge Date Discharge Date: 09/18/16 - Discharge Diagnoses Discharge Diagnosis: (1) Cellulitis of left leg (2) Dog bite of left lower leg (3) Hypertension - Hospital Course Hospital Course: IS A 46 YEAR OLD PATIENT OF OURS WHO PRESENTED TO THE EMERGENCY ROOM WITH COMPLAINTS AN INFECTED DOG BITE WOUND. PATIENT STATES THAT SHE WAS BIT BY A DOG ON 07/13/16. SHE HAD BEEN TREATED WITH KEFLEX AND BACTRIM, HOWEVER, WOUND HAS ONLY GOTTEN WORSE. ON EXAMINATION, LEFT LOWER LEG NOTED WITH REDNESS, TENDERNESS, AND SWELLING. WOUND NOTED WITH NECROTIC TISSUE. ON ARRIVAL TO ER, VITALS WERE 98.5-86-20-96%-181/102. CBC WNL. CMP WNL EXCEPT POTASSIUM 3.3, CRATININIE 1.06, CALCIUM 8.2, TOTAL BILIRUBIN 2.00. XRAY OF THE LEFT LOWER LEG REPORTS SMALL SOFT TISSUE DEFECT POSTERIOR TO THE DISTAL LEFT CALF. WE ADMITTED PATIENT FOR FURTHER TREATMENT AND EVALUATION. WE STARTED HER ON VANCOMYCIN 1GM IV Q12H, ZOSYN 3.375 GM IV TID, WE PLANNED TO ORDER A SURGICAL CONSULT, RECHECK LABS AND FOLLOW UP WITH PATIENT. , GENERAL SURGEON CONSULTED WITH PATIENT AND TOOK HER TO THE OR FOR IRRIGATION AND DEBRIDEMENT OF WOUND TO LEFT LOWER LEG. PATIENT TOLERATED WELL WITH NO COMPLICATIONS. HE CLEARED PATIENT FOR DISCHARGE FROM HIS SERVICES. WE PLANNED FOR DISCHARGE. INSTRUCTIONS FOR MEDICATIONS AND FOLLOW UP WERE DISCUSSED WITH PATIENT. SHE VERBALIZED UNDERSTANDING. PATIENT WAS DISCHARGED HOME IN STABLE CONDITION WITH NEW PRESCRIPTIONS FOR ZIAC 10/6.25 DAILY, GENTAMICIN TOPICAL OINTMENT BID, AND AUGMENTIN 875/125 BID FOR 14 DAYS AND WITH INSTRUCTIONS FOR WOUND CARE. SHE IS INSTRUCTED TO FOLLOW UP WITH US IN THE OFFICE NEXT WEEK. - Discharge Medications Discharge Medications: Amoxicillin & Pot Clavulanate [AUGMENTIN TAB 875 mg/125 mg *] 1 tab PO BID #28 tab 09/18/16 [Rx] Bisoprol/Hydrochlorothiazide [Ziac 10 mg/6.25 mg] 1 tab PO DAILY #30 tab [Rx] Gentamicin Topical Oint [GENTAMICIN TOPICAL OINT 0.1% *] 1 applic EXT BID #30 gm 09/18/16 [Rx]
== END 2016-09-18 13:10 | disposition home or self-care (01) | DRG 571 ==
LOC: ER 06:34 → MED/SURG 07:21
PROVIDERS: ADMIT Internal Medicine; ATTEND Internal Medicine
PROC: 0JBP0ZZ Excision of Left Lower Leg Subcutaneous Tissue and Fascia, Open Approach (ICD-10-PCS; principal; 2016-09-17 16:30)
DX: S81.852A Open bite, left lower leg, initial encounter (principal); L03.116 Cellulitis of left lower limb; W54.0XXA Bitten by dog, initial encounter; I10 Essential (primary) hypertension; Y92.89 Other specified places as the place of occurrence of the external cause; B96.5 Pseudomonas (aeruginosa) (mallei) (pseudomallei) as the cause of diseases classified elsewhere
CPT/HCPCS: 36415; 73590; 80053; 80202; 82977; 84703; 85025; 86140; 87040; 87070; 87075; 87077; 87186; 87205; 96365; 96374; 99284; A4222; Q0177; S0020; J1885; J2001; J2250; J2543; J3010; J3370; J3490; J7120